=== PATIENT | female | born 1935 | race Caucasian/White ===

== ENCOUNTER → 2018-12-12 | Outpatient (CLI) | payer OTHER ==
[2015-02-06 15:35] VITALS: BP 130/60
[~2018-12-12] MED LIST: ALEN70TA6 PO; AMLO10TA8 PO; APIX5TAB PO; ASCO10002 PO; BENZ200C47 PO; CARV6.2511 PO; FLUT1DIS3 IH; GADOTERATE 5 MMOL/10ML VIAL. IVP ONE; ISOS60TA2 PO; LUTE20TA PO; MILK175C4 PO; UBID30CA6 PO
--- NOTE | 2018-12-12 14:22 | KCIC ---
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 Comparison: None Findings: There is no evidence of recent infarct or cytotoxic edema. Ventricular size is proportionate to the sulcal spaces. There is mild supratentorial atrophy, fairly generalized.There is no significant midline shift, intraaxial mass effect, or focal abnormal extra-axial fluid collection. There is dnbq-vf-brvimrub T2 and FLAIR hyperintense signal abnormality of the periatrial white matter bilaterally, other minimal T2 and FLAIR hyperintense signal abnormality of the supratentorial parenchyma bilaterally. There is very minimal signal abnormality of the jamia. There are some small foci of hemosiderin deposition/old microhemorrhage of the right basal ganglia and right cerebellum. There is no nodular parenchymal or leptomeningeal enhancement. There is preservation of the major intracranial flow-voids at the skull base. The cerebellar tonsils are normal in location. There is no significant abnormality of the pineal gland or pituitary gland. There is patchy minimal ethmoid air cell mucosal thickening. The mastoid air cells are aerated. There is preserved marrow signal of the clivus. There has been lens surgery bilaterally. There is slightly disconjugate gaze. There is degenerative disc disease of visualized cervical spine. Impression: 1. There is no evidence of recent infarct or abnormal intracranial enhancement. There is mild supratentorial involutional change. Scattered multifocal T2 and FLAIR hyperintense abnormality of the supratentorial parenchyma bilaterally is nonspecific although more commonly due to chronic microvascular ischemic disease in a patient this age. Electronically signed by: Omega Nolan MD (12/12/2018 2:19 PM) [id number]
--- NOTE | 2018-12-12 14:27 | KCIC ---
MRA Brain History: Transient bilateral vision loss Technique: 3-D [id number]-[id number] MR angiography was performed of the brain. Comparison: None Findings: Determination of any degree of stenosis is based on NASCET criteria. There is motion degradation. Both vertebral arteries constitute the basilar artery, somewhat dominant left vertebral artery. There is visualization of right PICA. There is visualization of left AICA supplying region of left PICA. Right AICA is not seen. There is visualization of segments of bilateral superior cerebellar arteries. There are small bilateral posterior communicating arteries. There is partial azygous morphology of the A2 branch. There is patent anterior communicating artery. There is likely bhba-kc-sigshaxl stenosis and wall irregularity of the left P2 segment, minimally of the proximal right M2 segment. IMPRESSION: 1. There is evidence of intracranial atherosclerotic disease, likely [id number]-wt-[id number] stenosis of left P2 segment and minimally of the right M2 segment. Electronically signed by: Omega Nolan MD (12/12/2018 2:24 PM) [id number]
== END | disposition home or self-care (01) ==
LOC: KCIC MRI 12:00
PROVIDERS: ATTEND Family Medicine
DX: I67.2 Cerebral atherosclerosis (principal); G31.89 Other specified degenerative diseases of nervous system; H53.123 Transient visual loss, bilateral
CPT/HCPCS: 70544; 70553; A9575

== ENCOUNTER → 2021-03-09 | Outpatient (CLI) | payer MEDICARE ==
[2015-02-06 15:35] VITALS: BP 130/60
[~2021-03-09] MED LIST changes: -ALEN70TA6 PO; +ALEN70TA71 PO; +AMLO-187 PO; -AMLO10TA8 PO; +ASCO100019 PO; -ASCO10002 PO; -ISOS60TA2 PO; +ISOS60TA55 PO; +UBID30CA15 PO; -UBID30CA6 PO
--- NOTE | 2021-03-10 08:40 | RAD ---
EXAM: Brain MRI with and without contrast; head MRA without contrast; neck MRA with contrast. HISTORY: Transient ischemic attack. Mental status changes. TECHNIQUE: Multiplanar, multisequence magnetic resonance imaging of the brain was performed prior to and following the administration of intravenous contrast. Magnetic resonance angiography of the neck was performed with contrast and magnetic resonance angiography head was performed without contrast. T hree-dimensional owum-av-evntye and maximum intensity projections were obtained. COMPARISON: Brain MRI dated 12/12/[address] dated 03/07/2021. FINDINGS: Brain MRI: There is no restricted diffusion to suggest acute or subacute infarction. There is no mass effect or midline shift. There is no hydrocephalus. There is a focus of susceptibility effect within the right thalamus likely due to chronic microhemorrhage. There are scattered focal areas of signal change within the cerebral white matter, most commonly due to chronic small vessel disease in patients of this age. There is cerebral volume loss. There is evidence of lens surgery. The paranasal sinuses and mastoid air cells are unremarkable. Ther e are normal flow voids within the cerebral vessels. There is no suspicious calvarial lesion. There i s degenerative change and associated mild multilevel listhesis involving the mid and lower cervical s pine, not formally assessed on this exam. Head MRA: The exam is limited due to motion. There is a dominant left A2 segment which provides suppl y to the bilateral anterior cerebral artery distributions. There is a hypoplastic right A2 segment. T he posterior communicating arteries are likely hypoplastic. The left vertebral artery slightly domina nt. Neck MRA: The exam is nondiagnostic due to suboptimal timing of contrast administration. IMPRESSION: 1. No acute intracranial finding. 2. Scattered areas of signal change within the cerebral white matter, not significantly changed kayce red to the prior study and likely due to chronic small vessel disease. 3. Tiny focus of chronic microhemorrhage within the right thalamus. 4. Cerebral volume loss. 5. No convincing hemodynamically significant stenosis or occlusion involving the intracranial arterie s. The head MRA is limited due to motion and the neck MRA is nondiagnostic. A neck CT angiogram may b e useful for further evaluation if clinically indicated. PQRS Compliance Statement - Stenosis calculations for CT, MR and conventional angiography are based u janessa measurement of the distal ICA diameter in accordance with the NASCET methodology. Stenosis calcu lations for carotid ultrasound studies are derived from validated velocity criteria which are known t o correlate with the NASCET methodology. Electronically signed by: Mary Suero MD (03/10/2021 8:37 AM) [id number]
== END ==
LOC: MRI 13:41
PROVIDERS: ATTEND Family Medicine
DX: G45.9 Transient cerebral ischemic attack, unspecified (principal); Q02 Microcephaly
CPT/HCPCS: 70546; 70548; 70553; A9575